=== PATIENT | female | born 1945 | race Caucasian/White ===

== ENCOUNTER → 2017-04-09 | Outpatient (CLI) | payer MEDICARE ==
--- NOTE | 2017-04-09 11:11 | USB ---
Reason for exam: additional evaluation requested from abnormal screening. History: Patient is postmenopausal and had first child at age 32. Physical Findings: Nurse did not find any significant physical abnormalities on exam. US Breast Workup Limited LT Left breast ultrasound demonstrates no cystic or solid lesion seen. These results were verbally communicated with the patient and result sheet given to the patient on 04/09/17. ASSESSMENT: Negative, BI-RAD 1 RECOMMENDATION: Return to routine screening mammogram schedule for both breasts.
== END | disposition home or self-care (01) ==
LOC: RADUSWWP 09:51
PROVIDERS: ATTEND Family Medicine
DX: R92.8 Other abnormal and inconclusive findings on diagnostic imaging of breast (principal)